=== PATIENT | female | born 1945 | race Caucasian/White ===

== ENCOUNTER 2018-08-21 18:20 | Inpatient (IN) | payer MEDICAID ==
[~2018-08-21] VITALS: Ht 162.6 cm; Wt 85.5 kg
[2018-08-21 18:30] VITALS: Ht 162.6 cm; Wt 85.5 kg
[2018-08-21 19:48] LABS: BASOPHIL % 1.3 % (0-2); PLATELET COUNT 200 x10^3mcL (130-400)
[2018-08-21 19:52] LABS: RED CELL DISTRIBUTION WIDTH 14.6 % (11.5-14.5)
[2018-08-21 20:13] LABS: CALCIUM 8.3 mg/dL (8.5-10.1); CARBON DIOXIDE 26.6 mmol/L (21-32); CHLORIDE SERUM 106 mmol/L (98-107); CREATININE SERUM 0.7 mg/dL (0.6-1.0); GLUCOSE SERUM 88 mg/dL (74-106); SODIUM SERUM 138 mmol/L (136-145)
[2018-08-21 20:19] LABS: ALKALINE PHOSPHATASE 75 U/L (46-116); ALT/SGPT 28 U/L (14-59); AST/SGOT 19 U/L (15-37); BILIRUBIN TOTAL 0.23 mg/dL (0.20-1.00)
[2018-08-21 20:22] LABS: ALBUMIN 3.3 g/dL (3.4-5.0); TOTAL PROTEIN, SERUM 11.1 g/dL (6.4-8.2)
[2018-08-21] MEDS ORDERED: ZESTRIL20 MG PO (21:27)
[2018-08-21] MEDS ORDERED: HYDROCHLOROTHIA25 MG PO (21:27)
[2018-08-21] MEDS ORDERED: NOR5 PO (21:27)
[2018-08-21 21:57] LABS: T3 TOTAL 1.42 ng/mL
[2018-08-21 21:59] LABS: MAGNESIUM 2.2 mg/dL (1.8-2.4); PHOSPHOROUS 4.1 mg/dL (2.5-4.9)
[2018-08-21 22:04] VITALS: BP 167/84
[2018-08-21 22:25] LABS: FREE T4 1.06 ng/dL (0.76-1.46); T4(THYROXINE) 8.9 ug/dL (4.7-13.3)
[2018-08-21 23:00] VITALS: BP 130/81
[2018-08-22 00:41] LABS: microscopic required? YES; urine erythrocyte NEGATIVE (NEGATIVE)
[2018-08-22 00:50] LABS: AMPHETAMINE QUAL UR NONE DETECTED (See below)
[2018-08-22 05:44] VITALS: BP 138/80
[2018-08-22 06:38] LABS: BASOPHIL % 0.6 % (0-2); PLATELET COUNT 216 x10^3mcL (130-400)
[2018-08-22 06:42] LABS: RED CELL DISTRIBUTION WIDTH 14.6 % (11.5-14.5)
[2018-08-22 07:10] LABS: CALCIUM 8.8 mg/dL (8.5-10.1); CHLORIDE SERUM 107 mmol/L (98-107); CREATININE SERUM 0.8 mg/dL (0.6-1.0); GLUCOSE SERUM 101 mg/dL (74-106); SODIUM SERUM 142 mmol/L (136-145)
[2018-08-22 09:36] VITALS: BP 148/70
[2018-08-22 17:00] VITALS: BP 130/69
[2018-08-22 21:08] VITALS: BP 140/71
[2018-08-23 06:17] VITALS: BP 141/68
[2018-08-23 06:33] LABS: BASOPHIL % 0.8 % (0-2); PLATELET COUNT 207 x10^3mcL (130-400)
[2018-08-23 06:42] LABS: CALCIUM 8.1 mg/dL (8.5-10.1); CARBON DIOXIDE 27.1 mmol/L (21-32); CHLORIDE SERUM 107 mmol/L (98-107); CREATININE SERUM 0.7 mg/dL (0.6-1.0); GLUCOSE SERUM 104 mg/dL (74-106); MAGNESIUM 1.8 mg/dL (1.8-2.4); PHOSPHOROUS 4.1 mg/dL (2.5-4.9); SODIUM SERUM 139 mmol/L (136-145)
[2018-08-23 06:45] LABS: RED CELL DISTRIBUTION WIDTH 15.2 % (11.5-14.5)
[2018-08-23 08:50] VITALS: BP 161/81
[2018-08-23 17:37] VITALS: BP 142/72
[2018-08-23 20:51] VITALS: BP 142/74
[2018-08-24 04:52] VITALS: BP 134/69
[2018-08-24 06:15] LABS: CALCIUM 8.7 mg/dL (8.5-10.1); CARBON DIOXIDE 27.7 mmol/L (21-32); CHLORIDE SERUM 103 mmol/L (98-107); CREATININE SERUM 0.7 mg/dL (0.6-1.0); GLUCOSE SERUM 100 mg/dL (74-106); POTASSIUM SERUM 3.9 mmol/L (3.5-5.1); SODIUM SERUM 135 mmol/L (136-145)
[2018-08-24 07:08] LABS: BASOPHIL % 0.6 % (0-2); PLATELET COUNT 211 x10^3mcL (130-400); RED CELL DISTRIBUTION WIDTH 14.6 % (11.5-14.5)
[2018-08-24 09:27] VITALS: BP 152/78
[2018-08-24 16:26] VITALS: BP 146/82
[2018-08-24 20:52] VITALS: BP 137/77
[2018-08-25 05:36] VITALS: BP 131/58
[2018-08-25 06:48] LABS: BASOPHIL % 0.7 % (0-2); PLATELET COUNT 233 x10^3mcL (130-400); RED CELL DISTRIBUTION WIDTH 14.2 % (11.5-14.5)
[2018-08-25 07:29] LABS: CALCIUM 8.9 mg/dL (8.5-10.1); CARBON DIOXIDE 30.2 mmol/L (21-32); CHLORIDE SERUM 101 mmol/L (98-107); CREATININE SERUM 0.8 mg/dL (0.6-1.0); GLUCOSE SERUM 86 mg/dL (74-106); POTASSIUM SERUM 3.9 mmol/L (3.5-5.1); SODIUM SERUM 134 mmol/L (136-145)
[2018-08-25 09:08] VITALS: BP 142/78
[2018-08-25 16:35] VITALS: BP 127/69
[2018-08-25 21:05] VITALS: BP 126/71
[2018-08-26 05:29] VITALS: BP 120/68
[2018-08-26 07:03] LABS: BASOPHIL % 0.5 % (0-2); PLATELET COUNT 224 x10^3mcL (130-400); RED CELL DISTRIBUTION WIDTH 14.1 % (11.5-14.5)
[2018-08-26 07:30] LABS: CALCIUM 8.3 mg/dL (8.5-10.1); CHLORIDE SERUM 103 mmol/L (98-107); CREATININE SERUM 0.8 mg/dL (0.6-1.0); GLUCOSE SERUM 95 mg/dL (74-106); POTASSIUM SERUM 3.9 mmol/L (3.5-5.1); SODIUM SERUM 135 mmol/L (136-145)
[2018-08-26 09:17] VITALS: BP 140/79
[2018-08-26 16:15] VITALS: BP 132/77
[2018-08-26 20:45] VITALS: BP 123/80
[2018-08-27 05:38] VITALS: BP 105/69
[2018-08-27 08:52] VITALS: BP 158/76
[2018-08-27 10:02] VITALS: BP 158/76
[2018-08-27 11:49] VITALS: BP 140/82
[2018-08-27 17:17] VITALS: BP 108/72
[2018-08-27 20:42] VITALS: BP 123/76
[2018-08-28 05:32] VITALS: BP 128/68
[2018-08-28 06:29] LABS: CALCIUM 8.5 mg/dL (8.5-10.1); CARBON DIOXIDE 29.9 mmol/L (21-32); CHLORIDE SERUM 102 mmol/L (98-107); CREATININE SERUM 0.7 mg/dL (0.6-1.0); GLUCOSE SERUM 92 mg/dL (74-106); PHOSPHOROUS 4.1 mg/dL (2.5-4.9); POTASSIUM SERUM 4.3 mmol/L (3.5-5.1); SODIUM SERUM 134 mmol/L (136-145)
[2018-08-28 07:41] LABS: BASOPHIL % 1.1 % (0-2); PLATELET COUNT 229 x10^3mcL (130-400); RED CELL DISTRIBUTION WIDTH 14.5 % (11.5-14.5)
[2018-08-28 10:39] VITALS: BP 138/66
[2018-08-28 18:54] VITALS: BP 133/76
[2018-08-28 21:10] VITALS: BP 129/72
[2018-08-29 07:06] LABS: CALCIUM 8.6 mg/dL (8.5-10.1); CARBON DIOXIDE 28.8 mmol/L (21-32); CHLORIDE SERUM 99 mmol/L (98-107); CREATININE SERUM 0.8 mg/dL (0.6-1.0); GLUCOSE SERUM 87 mg/dL (74-106); POTASSIUM SERUM 4.3 mmol/L (3.5-5.1); SODIUM SERUM 134 mmol/L (136-145)
[2018-08-29 09:46] VITALS: BP 153/79
[2018-08-29 17:21] VITALS: BP 121/72
[2018-08-29 21:48] VITALS: BP 119/65
[2018-08-30 05:45] VITALS: BP 121/67
[2018-08-30 06:47] LABS: CALCIUM 8.4 mg/dL (8.5-10.1); CARBON DIOXIDE 26.9 mmol/L (21-32); CHLORIDE SERUM 99 mmol/L (98-107); CREATININE SERUM 0.9 mg/dL (0.6-1.0); GLUCOSE SERUM 99 mg/dL (74-106); POTASSIUM SERUM 4.1 mmol/L (3.5-5.1); SODIUM SERUM 131 mmol/L (136-145)
[2018-08-30 08:05] VITALS: BP 136/71
[2018-08-30 17:08] VITALS: BP 117/63
[2018-08-30 20:55] VITALS: BP 135/69
[2018-08-31 06:15] VITALS: BP 128/68
[2018-08-31 07:36] LABS: CALCIUM 8.4 mg/dL (8.5-10.1); CARBON DIOXIDE 28.8 mmol/L (21-32); CHLORIDE SERUM 103 mmol/L (98-107); CREATININE SERUM 0.8 mg/dL (0.6-1.0); GLUCOSE SERUM 99 mg/dL (74-106); MAGNESIUM 1.9 mg/dL (1.8-2.4); PHOSPHOROUS 4.1 mg/dL (2.5-4.9); SODIUM SERUM 137 mmol/L (136-145)
[2018-08-31 09:45] VITALS: BP 151/79
[2018-08-31 15:22] VITALS: BP 151/79
[2018-08-31 17:12] VITALS: BP 136/77
[2018-08-31 21:00] VITALS: BP 103/61
[2018-09-01 05:30] VITALS: BP 124/70
[2018-09-01 08:22] VITALS: BP 139/73
[2018-09-01 09:22] VITALS: BP 139/73
[2018-09-01 10:20] VITALS: BP 140/74
[2018-09-01 13:27] VITALS: BP 140/74
[2018-09-01 14:04] VITALS: BP 140/74
== END 2018-09-01 14:35 | disposition home or self-care (01) | DRG 691 ==
LOC: ED 18:20 → MU 21:16
PROVIDERS: Emergency Medicine; Family Medicine; Internal Medicine
DX: C90.00 Multiple myeloma not having achieved remission (principal); E44.0 Moderate protein-calorie malnutrition; M84.512A Pathological fracture in neoplastic disease, left shoulder, initial encounter for fracture; E83.51 Hypocalcemia; E87.1 Hypo-osmolality and hyponatremia; K76.0 Fatty (change of) liver, not elsewhere classified; M84.53 Pathological fracture in neoplastic disease, ulna and radius; N28.1 Cyst of kidney, acquired; N39.0 Urinary tract infection, site not specified; K76.89 Other specified diseases of liver; D49.2 Neoplasm of unspecified behavior of bone, soft tissue, and skin; D49.0 Neoplasm of unspecified behavior of digestive system; M79.81 Nontraumatic hematoma of soft tissue; M89.5 Osteolysis; I10 Essential (primary) hypertension; E78.5 Hyperlipidemia, unspecified; Z68.30 Body mass index [BMI] 30.0-30.9, adult
CPT/HCPCS: 83880; 84439; J0696; J1885; J7030; Q0092; Q9967